=== PATIENT | male | born 1945 | race African-American/Black ===

== ENCOUNTER → 2016-10-23 | Outpatient (CLI) | payer MEDICARE, OTHER | END | disposition home or self-care (01) | LOC: Rad HDHVI 10:25 | PROVIDERS: ATTEND Internal Medicine Cardiovascular Disease | DX: M81.0 Age-related osteoporosis without current pathological fracture (principal); M54.5 Low back pain | CPT/HCPCS: 72110 ==

== ENCOUNTER → 2016-12-19 | Outpatient (CLI) | payer MEDICARE, OTHER | END | disposition home or self-care (01) | LOC: Rad HDHVI 10:01 | PROVIDERS: ATTEND Internal Medicine Cardiovascular Disease | DX: I10 Essential (primary) hypertension (principal); I49.5 Sick sinus syndrome | CPT/HCPCS: 93306 ==

== ENCOUNTER → 2017-03-13 | Outpatient (CLI) | payer MEDICARE, OTHER ==
[2017-03-13 11:10] VITALS: BP 164/95
[2017-03-13 11:30] VITALS: BP 142/81
[2017-03-13 12:29] LABS: Basophils # (auto) 0 uL; Basophils % (auto) 0.6 % (0.0-2.0); Eosinophils # (auto) 0.1 uL; Eosinophils % (auto) 1.3 % (0.0-7.0); Hematocrit 38.3 % (41.0-53.0); Hemoglobin 13.1 g/dL (13.5-17.5); Lymphocytes # (auto) 1.2 uL; Lymphocytes % (auto) 26.9 % (10.0-50.0); Mean Corpuscular Hemoglobin 34.3 pg (28.0-32.0); Mean Corpuscular Hgb Conc. 34.3 g/dL (32.0-36.0); Mean Corpuscular Volume 100.1 fL (80.0-100.0); Mean Platelet Volume 8.2 fL (7.4-10.4); Monocytes # (auto) 0.5 uL; Neutrophils # (auto) 2.8 uL; Neutrophils % (auto) 60.2 % (37.0-80.0); Platelet Count (auto) 409 10^3/uL (140-450); White Blood Cell 4.6 10^3/uL (4.4-10.8)
[2017-03-13 12:39] LABS: BUN/Creatinine Ratio 9.4; Calcium 9.2 mg/dL (8.5-10.1); Potassium 4.5 mmol/L (3.5-5.1)
[2017-03-13 12:43] LABS: INR 0.98 (0.9-1.15); Partial Thromboplastin Time 24.8 sec (22.64-33.71); Prothrombin Time 10.7 sec (9.37-12.3)
== END | disposition home or self-care (01) ==
LOC: Rad HDHVI 10:44
PROVIDERS: ATTEND Internal Medicine Cardiovascular Disease
DX: I10 Essential (primary) hypertension (principal); D64.9 Anemia, unspecified; R79.1 Abnormal coagulation profile; Z01.812 Encounter for preprocedural laboratory examination
CPT/HCPCS: 36415; 71020; 80048; 85025; 85610; 85730; 93005; G0463

== ENCOUNTER 2017-03-15 11:43 | Day surgery (SDC) | payer MEDICARE, OTHER ==
[~2017-03-15] VITALS: Ht 188 cm; Wt 62.6 kg
[2017-03-15] MEDS ORDERED: VANCOMYCIN HCL 1000 MG VL IR ONE (12:15)
[2017-03-15] MEDS ORDERED: ceFAZolin 1GM/50ML D5W 50 ML IV ONE (12:15)
[2017-03-15] MEDS ORDERED: VANCOMYCIN PER PHARMACY 0 MG IV SCH (12:15)
[2017-03-15] MEDS ORDERED: VANCOMYCIN PER PHARMACY 0 MG IV ONE (13:00)
[2017-03-15] MEDS ORDERED: LIDOCAINE 2%HCL (LOCAL ANESTH.) INJ 20ML MDV ONE (13:10)
[2017-03-15] MEDS ORDERED: MIDAZOLAM HCL 1MG/1ML-2 ML VIAL ONE (13:47)
[2017-03-15] MEDS ORDERED: fentaNYL CITRATE 100 MCG/2 ML VL ONE (13:47)
== END 2017-03-15 16:25 | disposition home or self-care (01) ==
LOC: CATH 11:43 → EDUNIT# 11:43 → CATH 16:25
PROVIDERS: ATTEND Internal Medicine Cardiovascular Disease
DX: I49.5 Sick sinus syndrome (principal); G20 Parkinson's disease; J43.9 Emphysema, unspecified
CPT/HCPCS: 33228; J0690; J2250; J3010; J3370; J7030